=== PATIENT | male | born 1970 | race African-American/Black ===

== ENCOUNTER 2019-12-31 14:26 | Emergency (ER) | payer OTHER ==
[~2019-12-31] VITALS: Ht 182.9 cm; Wt 95.0 kg
[2019-12-31] MEDS ORDERED: PENICILLN VK500 MG PO (14:49)
[2019-12-31] MEDS ORDERED: TRAMADOL HYDROC50 M1 PO (14:49)
[2019-12-31 14:50] VITALS: BP 125/79
== END 2019-12-31 14:50 | disposition home or self-care (01) | DRG 159 ==
LOC: ED 14:26
DX: K08.89 Other specified disorders of teeth and supporting structures (principal); F17.210 Nicotine dependence, cigarettes, uncomplicated